=== PATIENT | male | born 1965 | race Caucasian/White ===

== ENCOUNTER 2017-10-01 20:48 | Emergency (ER) | payer OTHER, BC ==
[~2017-10-01] VITALS: Ht 180.3 cm; Wt 117.4 kg
[2017-10-01] MEDS ORDERED: FLEXERIL10 MG PO (22:13)
[2017-10-01] MEDS ORDERED: NORCO 5/3251 TABLET PO (22:13)
[2017-10-01 22:41] VITALS: BP 176/123
== END 2017-10-01 22:41 | disposition home or self-care (01) ==
LOC: EME 20:48
DX: S16.1XXA Strain of muscle, fascia and tendon at neck level, initial encounter (principal); V49.40XA Driver injured in collision with unspecified motor vehicles in traffic accident, initial encounter; Y92.410 Unspecified street and highway as the place of occurrence of the external cause; R03.0 Elevated blood-pressure reading, without diagnosis of hypertension; Z87.891 Personal history of nicotine dependence
CPT/HCPCS: 72040; 99281; 99284